=== PATIENT | male | born 1945 | race Caucasian/White ===

== ENCOUNTER → 2017-01-13 09:30 | Outpatient (CLI) | payer MEDICARE, OTHER ==
[2011-10-01 08:04] VITALS: BMI 32.6
== END | disposition home or self-care (01) ==
LOC: D.MRI 09:30
DX: M54.6 Pain in thoracic spine (principal)

== ENCOUNTER → 2017-02-17 12:31 | Outpatient (CLI) | payer MEDICARE, OTHER ==
[2011-10-01 08:04] VITALS: BMI 32.6
== END | disposition home or self-care (01) ==
LOC: D.MRI 12:31
DX: M48.06 Spinal stenosis, lumbar region (principal); M50.30 Other cervical disc degeneration, unspecified cervical region; M51.36 Other intervertebral disc degeneration, lumbar region

== ENCOUNTER 2017-07-19 10:12 | Outpatient (CLI) | payer MEDICARE, OTHER ==
[~2017-07-19] VITALS: Ht 182.9 cm; Wt 122.7 kg
--- NOTE | ~2017-07-19 | HEMODYNAMI ---
PATIENT:MONICA BREWER MEDICAL RECORD: [id number] : 41 LOCATION:[facility] D.2114 ADMISSION DATE: 07/19/17 Generatedon:07/20/20177:37 Patient name: MONICA BREWER Patient #: [id number] SSN: : 1945 Date of study: 07/19/2017 Page: Of Hemodynamic Procedure Report Patient Data Patient Demographics Procedure consent was obtained First Name: MONICA Gender: Male Last Name: OSMAN : 1945 Middle Initial: BREEZY Age: 72 year(s) Patient #: [id number] Race: Unknown Additional ID: [id number] Contact details [address]: [address] [place] [address] State: [place] City: [place] Zip code: [address] Past Medical History Allergies Allergen Reaction Date Comments Reported Other allergy 07/19/2017 morphine Admission Admission Data Admission Date: 07/19/2017 Admission Time: 13:21 Admit Source: Other Room #: D.2114 Lab Results Lab Result Date: 07/19/2017 Lab Result Time: 10:30 Biochemistry Name Units Result Min Max BUN mg/dl 20 --(----)*- 7 18 Creatinine mg/dl 1.2 --(---*)-- 0.6 1.3 CBC Name Units Result Min Max Hematocrit % 41.7 -*(----)-- 42 54 Hemoglobin g/dl 13.6 --(*---)-- 13.5 17.5 Procedure Procedure Types Cath Procedure Diagnostic Procedure C [facility] w/Coronaries PCI Procedure Coronary Stent Coronary Stent Initial Coronary Stent Additional Miscellaneous Procedures Moderate Sedation up to 30 minutes Procedure Description Procedure Date Procedure Date: 07/19/2017 Procedure Start Time: 15:53 Procedure End Time: 16:25 Procedure Staff Name Function Colby Weiss RT Monitor Rao Torres RN Nurse Jorge Alberto Kapadia MD Performing Physician Saul Dumont RT Scrub Procedure Data Cath Procedure Fluoroscopy Diagnostic fluoroscopy Total fluoroscopy Time: time: 10.1 min 10.1 min Diagnostic fluoroscopy Total fluoroscopy dose: dose: 2634 mGy 2634 mGy Contrast Material Contrast Material Type Amount (ml) Isovue 300 135 Entry Location Entry Primary Successful Side Size Upsize Upsize Entry Closure Succes sful Closure Location (Fr) 1 (Fr) 2 (Fr) Remarks Device Remarks Femoral Right 5 Fr 6 Fr Exoseal artery Short Estimated blood loss: 10 ml Diagnostic catheters Device Type Used For End Catheter Placement MULTIPACK Pigtail 5 Fr Procedure catheter MULTIPACK JL 4.0 5Fr Procedure catheter MULTIPACK 3DRC 5Fr Procedure catheter Procedure Complications No complications Procedure Medications Medication Administration Route Dosage Oxygen NC 3 l/min Lidocaine 2% added to field 20 Heparin Flush Bag added to field 2 bags (1000units/500ml NS) 0.9% NaCl I.V. 100 ml/hr Zofran I.V. 4 mg Versed I.V. 1 mg Fentanyl I.V. 50 mcg Versed I.V. 0.5 mg Fentanyl I.V. 25 mcg Heparin Bolus I.V. 5000 units Integrilin (Bolus I.V. 11.3 ml 2mg/ml) Integrilin (Bolus I.V. 11.3 ml 2mg/ml) Versed I.V. 0.5 mg Fentanyl I.V. 25 mcg Plavix P.O. 600 mg Hemodynamics Rest HGB: 13.6 (g/dl) Heart Rate: 95 (bpm) Pressure Samples Time Site Value (mmHg) Purpose Heart Use Rate(bpm) 16:12 AO 122/69(93) Snapshot 81 Snapshots Pre Cath Intra NCS Post Cath Vital Signs Time Heart Resp SPO2 etCO2 NIBP (mmHg) Rhythm Pain Sedation Rate (ipm) (%) (mmHg) Status Level (bpm) 15:40:20 79 16 96 36.6 144/81(124) NSR 0 (11) 10(A) , No pain 15:45:05 85 18 95 28.4 146/78(126) NSR 0 (11) 10(A) , No pain 15:49:47 86 22 92 25.4 137/66(104) NSR 0 (11) 10(A) , No pain 15:55:05 89 19 93 11.9 91/68(81) NSR 0 (11) 10(A) , No pain 16:00:12 88 17 93 14.2 125/71(105) NSR 0 (11) 10(A) , No pain 16:04:55 75 19 95 37.4 113/70(94) NSR 0 (11) 10(A) , No pain 16:10:12 81 16 93 21.6 108/63(81) NSR 0 (11) 10(A) , No pain 16:15:21 82 18 92 17.2 130/78(101) NSR 0 (11) 10(A) , No pain 16:20:04 77 18 94 18.7 134/69(111) NSR 0 (11) 10(A) , No pain 16:24:49 78 14 92 22.4 133/68(115) NSR 0 (11) 10(A) , No pain Medications Time Medication Route Dose Verified Delivered Reason Notes Effectiveness by by 15:41:52 Oxygen NC 3 Jorge Alberto Buffie used for l/min Steffi Torres RN procedure 15:42:00 Lidocaine 2% added 20ml Jorge Alberto Azul for local to vial Steffi Kapadia MD anesthetic field 15:42:07 Heparin Flush added 2 Jorge Alberto Jorge Alberto used for Bag to bags Steffi Kapadia MD procedure (1000units/500ml field NS) 15:42:17 0.9% NaCl I.V. 100 Jorge Alberto Jorge Alberto Per physician ml/hr Steffi Kapadia MD 15:42:36 Zofran I.V. 4 mg Jorge Alberto Yeh Per physician Steffi Torres RN 15:47:31 Versed I.V. 1 mg Jorge Alberto Yeh for sedation Steffi Torres RN 15:47:38 Fentanyl I.V. 50 Jorge Alberto Buffie for sedation mcg Steffi oTrres RN 15:53:36 Versed I.V. 0.5 Jorge Alberto Buffie for sedation mg Steffi Torres RN 15:53:40 Fentanyl I.V. 25 Jorge Alberto Buffie for sedation mcg Steffi Torres RN 15:58:03 Heparin Bolus I.V. 5000 Jorge Alberto Buffie for units Steffi Torres RN anticoagulation 16:00:56 Integrilin I.V. 11.3 Jorge Alberto Buffie for (Bolus 2mg/ml) ml Steffi Torres RN antiplatelet therapy 16:05:42 Integrilin I.V. 11.3 Jorge Alberto Buffie for Wasted (Bolus 2mg/ml) ml Steffi Torres RN antiplatelet 7.4 ml therapy of vial, used 3 vials 16:10:00 Fentanyl I.V. 25 Jorge Alberto Yeh for sedation mcg Steffi Torres RN 16:10:55 Versed I.V. 0.5 Jorge Alberto Yeh for sedation mg Steffi Torres RN 16:20:27 Plavix P.O. 600 Jorge Alberto Yeh for mg Steffi Torres RN antiplatelet therapy Procedure Log Time Note 15:00:20 Colby Weiss RT(R) sent for patient. Start room use. 15:02:14 Informed consent obtained and on chart 15:02:51 Admit Source: Other 15:03:18 Diagnostic Cath status Elective 15:03:21 Time tracking: Regular hours 15:03:56 Plan of Care:Hemodynamics will remain stable., Cardiac rhythm will remain stable., Comfort level will be maintained., Respiratory function will remain adequate., Patient/ family verbilizes understanding of procedure., Procedure tolerated without complication., Recovers from procedure without complications.. 15:04:03 H&P Date Dictated: 07/19/2017 New H&P dictated by physician.. 15:05:24 Lab Result : Hemoglobin 13.6 g/dl 15:05:24 Lab Result : Hematocrit 41.7 % 15:05:24 Lab Result : BUN 20 mg/dl 15:05:24 Lab Result : Creatinine 1.2 mg/dl 15:31:44 Patient received from Med II to CCL 1 Alert and oriented. Tansferred to table in Supine position. 15:31:45 Correct patient and procedure confirmed by team. 15:31:45 Warm blankets applied, and marco hugger turned on for patient comfort. 15:31:46 ECG and BP/O2 sat monitors applied to patient. 15:31:47 Pre-op teaching completed and patient verbalized understanding. 15:31:47 Pre-procedure instructions explained to patient. 15:31:49 Family in waiting room. 15:31:53 Patient NPO since Breakfast. 15:32:04 Patient allergic to Other allergymorphine 15:34:10 Is the patient allergic to Iodine/contrast media? No. 15:34:13 Is patient on blood thinner?No 15:34:31 Lab results completed and on chart. 15:35:34 Patient diabetic? Yes. 15:35:51 If diabetic: On Metformin? No 15:36:02 Previous problem with sedation/anesthesia? No ? 15:36:05 Snore? Yes 15:36:06 Sleep apnea? Yes 15:36:09 Opens mouth fully? Yes 15:36:09 Deviated septum? No 15:36:11 Sticks out tongue? Yes 15:36:19 Airway obstruction? No ? 15:36:24 Dentures? No ? 15:36:48 Patient pain scale 0/10 ?. 15:38:08 IV patent on arrival in right antecubital with 0.9% NaCl at [facility]. 15:39:12 Vital chart was started 15:39:13 Baseline sample Acquired. 15:39:20 Rhythm: sinus rhythm 15:39:40 Right groin area was prepped with chlora-prep and draped in sterile fashion 15:39:43 Alarms reviewed by R. N. 15:39:44 Sharps counted by scrub and verified by R.N. 15:39:56 Baseline sample Acquired. 15:40:04 Baseline sample Acquired. 15:40:23 Use device set Femoral Dx 15:40:24 ACIST Syringe (41346) opened to sterile field. 15:40:25 Bag Decanter (2002S) opened to sterile field. 15:40:26 Medline Cath Pack ([id number]) opened to sterile field. 15:40:32 ACIST Hand Control (24464) opened to sterile field. 15:40:33 ACIST Manifold (92574) opened to sterile field. 15:40:35 DIAGNOSTIC Multipack 5Fr catheter set ([id number]) opened to sterile field. 15:40:36 Tegaderm 4 x 4 (1626W) opened to sterile field. 15:41:52 Oxygen 3 l/min NC was administered by Rao Torres RN; used for procedure; 15:42:00 Lidocaine 2% 20ml vial added to field was administered by Jorge Alberto Kapadia MD; for local anesthetic; 15:42:07 Heparin Flush Bag (1000units/500ml NS) 2 bags added to field was administered by Jorge Alberto Kapadia MD; used for procedure; 15:42:17 0.9% NaCl 100 ml/hr I.V. was administered by Jorge Alberto Kapadia MD; Per physician; 15:42:36 Zofran 4 mg I.V. was administered by Rao Torres RN; Per physician; 15:46:49 DIAGNOSTIC WIRE .035 260cm J wire (404928) opened to sterile field. 15:46:49 SHEATH 5FR [place] (JAO712) opened to sterile field. 15:47:06 --------ALL STOP TIME OUT------ 15:47:07 Final Timeout: patient, procedure, and site verified with staff and physician. All members of the team are in agreement. 15:47:09 Right groin site verified by team. 15:47:12 Physical assessment completed. ASA score P 2 - A patient with mild systemic disease as per Jorge Alberto Kapadia MD. 15:47:14 Sedation plan: IV Moderate Sedation Medication:Versed, Fentanyl 15:47:31 Versed 1 mg I.V. was administered by Rao Torres RN; for sedation; 15:47:38 Fentanyl 50 mcg I.V. was administered by Rao Torres RN; for sedation; 15:48:56 PERCUTANEOUS ENTRY 19GA needle opened to sterile field. 15:53:33 Full Disclosure recording started 15:53:33 Procedure started. 15:53:36 Versed 0.5 mg I.V. was administered by Rao Torres RN; for sedation; 15:53:40 Fentanyl 25 mcg I.V. was administered by Rao Torres RN; for sedation; 15:53:53 Local anesthetic to right radial artery with Lidocaine 2% by Jorge Alberto Kapadia MD.INITIAL ACCESS ONLY 15:54:13 A 5 Fr sheath was inserted into the Right Femoral artery 15:54:27 A MULTIPACK Pigtail 5 Fr catheter was advanced over the wire and used for Procedure. 15:54:58 LV angiography performed. 15:54:59 LV gram done using HEALY 15:55:04 EF : 50 % 15:55:07 Injector settings: Ml/sec: 10, Volume: 20, 15:55:10 Catheter removed. 15:55:18 A MULTIPACK JL 4.0 5Fr catheter was advanced over the wire and used for Procedure. 15:56:21 LCA angiography performed. 15:56:39 Catheter removed. 15:58:03 Heparin Bolus 5000 units I.V. was administered by Rao Torres RN; for anticoagulation; 15:58:42 A MULTIPACK 3DRC 5Fr catheter was advanced over the wire and used for Procedure. 15:58:46 RCA angiography performed. 15:59:02 Use device set TAU PCI 15:59:09 INFLATOR Merit BasixCompak (SQ7764) opened to sterile field. 15:59:10 SHEATH 6FR [place] (QLU219) opened to sterile field. 15:59:19 CHOICE PT Extra Support J 300cm guide wire ([id number]) opened to sterile field. 15:59:30 Sheath upsized to a 6 Fr Short. 15:59:44 Study PCI Site: [place] OM1 has 100% stenosis. 15:59:47 ACC Pre-intervention LIZBETH Flow is 0. 15:59:53 6 Fr XBLAD 4 guide catheter was inserted over the wire 15:59:57 GUIDE 6FR XBLAD 4.0 catheter ([id number]) opened to sterile field. 16:00:56 Integrilin (Bolus 2mg/ml) 11.3 ml I.V. was administered by Rao Torres RN; for antiplatelet therapy; 16:01:00 Choice PT XS wire advanced. 16:02:58 GUIDE 6FR XBLAD 3.5 catheter ([id number]) opened to sterile field. 16:03:11 Wire advanced across lesion. 16:03:18 Inflation number: 1 A MAVERICK 3.0 X 20 balloon ([id number]) was prepped and advanced across the Prox CX, then inflated to 5 TIA for 0:10 (min:sec). 16:03:29 CHOICE PT Extra Support J 300cm guide wire ([id number]) opened to sterile field. 16:03:55 Wire damaged, exchanged for new choice pt xs. 16:04:11 Inflation number: 2 The MAVERICK 3.0 X 20 balloon ([id number]) was reinflated across the Prox CX, to 15 TIA for 0:10 (min:sec). 16:05:28 Balloon removed over the wire. 16:05:42 Integrilin (Bolus 2mg/ml) 11.3 ml I.V. was administered by Rao Torres RN; for antiplatelet therapy; Wasted 7.4 ml of vial, used 3 vials 16:06:57 Inflation Number: 3 A INTEGRITY OTW 3.5 X 22 stent ([id number]) was prepped and advanced across the Prox CX. The stent was deployed at 17 TIA for 0:10 (min:sec). 16:07:35 WHISPER 300cm guide wire ([id number]) opened to sterile field. 16:08:02 Wire removed. 16:08:07 Whisper wire advanced. 16:09:48 Wire advanced across lesion. 16:10:00 Fentanyl 25 mcg I.V. was administered by Rao Torres RN; for sedation; 16:10:09 Inflation number: 1 The stent balloon was then re-inflated across the 1st Ob Justa to 13 TIA for 0:10 (min:sec). 16:10:55 Versed 0.5 mg I.V. was administered by Rao Torres RN; for sedation; 16:11:03 Stent catheter was removed intact over wire. 16:12:06 Inflation Number: 2 A INTEGRITY OTW 3.5 X 15 stent ([id number]) was prepped and advanced across the 1st Ob Justa. The stent was deployed at 13 TIA for 0:10 (min:sec). 16:13:34 Wire redirected to CIRC. 16:14:13 Inflation number: 4 The stent balloon was then re-inflated across the Prox CX to 9 TIA for 0:10 (min:sec). 16:14:48 Multiple inflations made at 13 Atms. 16:14:52 Wire removed. 16:14:52 Stent catheter was removed intact over wire. 16:14:53 Guide catheter removed. 16:15:00 EXOSEAL 6Fr (EX600) opened to sterile field. 16:15:17 Sheath removed intact; hemostasis achieved with Exoseal to the Right Femoral artery. 16:15:19 Procedure ended.(Physican Out) 16:15:30 Fluoroscopy time 10.10 minutes. 16:15:34 Fluoroscopy dose: 2634 mGy 16:15:34 Flurop Dose total: 2634 16:15:39 Contrast amount:Isovue 300 135ml. 16:15:41 Sharps counted by scrub and verified by R.N. 16:16:07 Insertion/operative site no bleeding no hematoma. 16:16:09 Post-op/insertion site Right Femoral artery dressed using a 4 x 4 and Tegaderm. 16:16:11 Post Procedure Pulses reassessed and unchanged 16:16:13 Post-procedure physical assessment completed. ASA score P 2 - A patient with mild systemic disease as per Jorge Alberto Kapadia MD. 16:16:16 Post procedure rhythm: unchanged. 16:16:19 Estimated blood loss: 10 ml 16:16:21 Patient needs reinforcement of post procedure teaching. 16:16:21 Post procedure instruction explained to patient.Patient verbalizes understanding. 16:17:09 Procedure type changed to Cath procedure, Diagnostic procedure, LHC, LHC w/Coronaries, PCI procedure, Coronary Stent, Coronary Stent Initial, Coronary Stent Additional, Miscellaneous Procedures, Moderate Sedation up to 30 minutes 16:17:12 Procedure and supply charges have been captured, reviewed, submitted and are correct. 16:17:15 Procedure Complication : No complications 16:20:27 Plavix 600 mg P.O. was administered by Rao Torres RN; for antiplatelet therapy; 16:25:47 Vital chart was stopped 16:25:48 See physician's report for complete and final results. 16:25:50 Report given to PCU. 16:25:53 Patient transfered to PCU with Bed. 16:25:56 Full Disclosure recording stopped 16:25:56 Procedure ended. 16:26:00 End room use (Document Last) Intervention Summary Intervention Notes Time ActionType Lesion and Equipment Action# Pressure Duration Attributes Used 16:03:18 Inflate Prox CX MAVERICK 3.0 1 5 00:10 balloon X 20 balloon ([id number]) 16:04:11 Reinflate Prox CX MAVERICK 3.0 2 15 00:10 balloon X 20 balloon ([id number]) 16:06:57 Place stent Prox CX INTEGRITY 3 17 00:10 OTW 3.5 X 22 stent ([id number]) 16:10:09 Reinflate 1st Ob Justa INTEGRITY 1 13 00:10 stent OTW 3.5 X 22 balloon stent ([id number]) 16:12:06 Place stent 1st Ob Justa INTEGRITY 2 13 00:10 OTW 3.5 X 15 stent ([id number]) 16:14:13 Reinflate Prox CX INTEGRITY 4 9 00:10 stent OTW 3.5 X 15 balloon stent ([id number]) Device Usage Item Name Manufacture Quantity Catalog Number Hospital Part Current Min imal Lot# / Charge Number Stock Stock Serial# Code [facility] 1 24425 753425 742351 271604 20 Syringe Medical (53900) Systems Inc Bag Decanter Microtek 1 2001S 350988 39389 836256 5 (2001S) Medical Inc. Medline Cath Cardinal 1 [id number] 934903 50688 566801 5 Pack Health ([id number]) ACIST Hand Acist 1 85966 921954 820865 585198 5 Control Medical (54555) Systems Inc ACIST Acist 1 55282 544652 251306 292302 5 Manifold Medical (04345) Systems Inc DIAGNOSTIC Cardinal 1 DL1629 945723 25412 162202 30 Multipack [employer] 5Fr catheter set (YI5840) Tegaderm 4 x 3M 1 1626W 658419 069895 140470 5 4 (1626W) SHEATH 5FR Terumo 1 KOP527 890837 304086 479539 40 [place] (GXU107) DIAGNOSTIC [facility] 1 257860 955325 187638 643723 30 WIRE .035 260cm J wire (334807) PERCUTANEOUS [facility] 1 B96157 838448 168426 5 ENTRY 19GA needle MULTIPACK Cardinal 1 121909 5 Pigtail 5 Fr Health catheter MULTIPACK JL Cardinal 1 505672 5 4.0 5Fr Health catheter MULTIPACK Cardinal 1 298572 5 3DRC 5Fr Health catheter INFLATOR [facility] 1 ID0994 834186 990178 059999 15 [place] Medical BasixCompak (TY7223) SHEATH 6FR Terumo 1 TKD828 794751 499495 487310 40 [place] (RCI992) CHOICE PT Nettie 2 [id number] 482217 20190207 764624 5 Extra Scientific Support J 300cm guide wire ([id number]) GUIDE 6FR Cardinal 1 28424354 211337 194845 693203 3 XBLAD 4.0 Health catheter (21617733) GUIDE 6FR Cardinal 1 [id number] 413942 917951 875792 10 XBLAD 3.5 Health catheter (58602596) MAVERICK 3.0 Nettie 1 [id number] 346772 124444 018929 1 [id number] X 20 balloon Scientific ([id number]) INTEGRITY Medtronic 1 [id number] 233897 714473 9 [id number] OTW 3.5 X 22 stent ([id number]) WHISPER Ibarra 1 [id number] 336606 171428 165519 5 300cm guide Vascular wire (6811550DM) INTEGRITY Medtronic 1 [id number] 188362 338910 7 [id number] OTW 3.5 X 15 stent ([id number]) EXOSEAL 6Fr Cardinal 1 EX600 966611 091180 090109 10 (EX600) Health Signature Audit [place] Stage Time Signature Unsigned Intra-Procedure 07/19/2017 Colby Weiss RT(R) 4:29:09 PM RT(R) 07/20/2017 7:36:03 AM Intra-Procedure 07/20/2017 Colby Weiss 7:37:18 AM RT(R) Signatures Monitor : Colby Weiss RT Signature : Date : Time : [address] [address]
[2017-07-19 10:36] LABS: BASOPHILS 0.1 % (0-2); EOSINOPHILS 2.5 % (0-7); HEMATOCRIT 41.7 % (42.0-54.0); HEMOGLOBIN 13.6 g/dL (13.5-17.5); IMMATURE GRANULOCYTES 0.3 % (0-5); LYMPHOCYTES 38.4 % (15-50); MCH 29.5 pg (26.0-34.0); MCHC 32.6 g/dL (31.0-37.0); MCV 90.5 fL (80.0-100.0); MEAN PLATELET VOLUME 10.2 fL (7.4-10.4); MONOCYTES 6.5 % (2-11); NEUTROPHILS 52.2 % (40-80); PLATELET COUNT 214 10x3/uL (130-400); RBC 4.61 10x6/uL (4.20-6.10); RDW 14.6 % (11.5-14.5); WBC 9.3 10x3/uL (4.8-10.8)
[2017-07-19 10:51] LABS: ALBUMIN 3.6 g/dL (3.4-5.0); ALKALINE PHOSPHATASE 87 U/L (46-116); ALT (SGPT) 19 U/L (10-68); CALC OSMOLALITY 287 mosm/kg (275-300); CALCIUM 9.2 mg/dL (8.5-10.1); CARBON DIOXIDE 25.6 mmol/L (21.0-32.0); CHLORIDE - SERUM 103 mmol/L (98-107); CREATININE - SERUM 1.2 mg/dL (0.6-1.3); GLUCOSE 206 mg/dL (74-106); POTASSIUM - SERUM 4.4 mmol/L (3.5-5.1); PROTEIN - SERUM 7.8 g/dL (6.4-8.2); SODIUM 140 mmol/L (136-145); UREA NITROGEN 20 mg/dL (7-18); eGFR NON AFRICAN AMERICAN 63 mL/min (90-120)
[2017-07-19 11:01] LABS: CHOL - HDL RATIO 3.6 ratio (2.3-4.9); CHOLESTEROL, TOTAL 132 mg/dL (0-200); CREATINE KINASE 118 UL (21-232); HDL CHOLESTEROL 37 mg/dL (32-96); LDL CHOLESTEROL 69 mg/dL (0-100); LDL-HDL RATIO 1.9 ratio (1.5-3.5); TRIGLYCERIDE 131 mg/dL (30-200)
[2017-07-19 11:08] LABS: TROPONIN-I < 0.017 ng/mL (0.000-0.060)
--- NOTE | 2017-07-19 15:12 | NUR ---
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
--- NOTE | 2017-07-19 15:30 | NUR ---
PT TO TERRITORY ACCOUNT REPRESENTATIVE VIA BED PER CATH STAFF
[2017-07-19 15:39] VITALS: BP 125/66
[2017-07-19 15:47] VITALS: BP 135/66; Ht 182.9 cm; Wt 122.7 kg
--- NOTE | 2017-07-19 16:45 | NUR ---
RECEIVED PT BACK FROM NEEDLE GRADER VIA BED RT GROIN LUBNA C/D/I NO SIGNS OF BLEEDING VSS WILL CONTINUE TO MONITOR
[2017-07-19] MEDS ORDERED: ZESTRIL40 MG PO (18:53)
[2017-07-19] MEDS ORDERED: LANTUS SOL100 UNIT/1 SC (18:53)
[2017-07-19] MEDS ORDERED: BAYER CHEWABLE81 MG PO (18:54)
[2017-07-19] MEDS ORDERED: NORVASC10 MG PO (18:54)
[2017-07-19] MEDS ORDERED: OMEPRAZOLE20 M1 PO (18:55)
[2017-07-19] MEDS ORDERED: CARDURA4 MG PO (18:55)
[2017-07-19] MEDS ORDERED: FLOMAX0.4 MG PO (18:56)
[2017-07-19] MEDS ORDERED: GLIPIZIDE10 MG PO (18:56)
[2017-07-19] MEDS ORDERED: PLAVIX75 MG PO (18:56)
[2017-07-19] MEDS ORDERED: LIPITOR40 MG PO (18:57)
[2017-07-19] MEDS ORDERED: GLUCOTROL XL 1010 MG PO (18:58)
[2017-07-19 19:00] VITALS: BP 123/72
--- NOTE | 2017-07-19 19:00 | NUR ---
RECEIVED REPORT AND ASSUMED PT CARE FROM DAY SHIFT NURSE @ THIS TIME.
[2017-07-20] VITALS: BP 147/69
[2017-07-20 04:00] VITALS: BP 123/51
--- NOTE | 2017-07-20 07:30 | NUR ---
RECEIVED PT IN BED AAOX4 RESP UNLABORED DENIES ANY NEEDS OR DISCOMFORT NAD NOTED
[2017-07-20 07:47] VITALS: BP 130/77
[2017-07-20 11:31] VITALS: BP 108/72
--- NOTE | 2017-07-20 11:34 | HP ---
PATIENT: MONICA BREWER MEDICAL RECORD: [id number] ACCOUNT: [id number] LOCATION:[facility].2114 : 41 ADMISSION DATE: 07/19/17 HISTORY AND PHYSICAL EXAMINATION DIAGNOSES: 1. Unstable angina. 2. Coronary artery disease. 3. Previous PTCA and stent. 4. Abnormal ECG. 5. Hypertension. 6. Hyperlipidemia. HISTORY: This is a gentleman who presents with anginal symptomatology. He has ST-T changes on his EKG, but no acute myocardial infarction. His chest pain was new onset of today. The last stents were in September of 2014. REVIEW OF SYSTEMS: The patient reports easy bruising but reports no swollen glands. The patient reports no fever, no night sweats, no significant weight gain, no significant weight loss. No significant exercise tolerance. The patient reports no dry eyes, no irritation, no vision change. Patient reports no difficulty hearing and no ear pain. Patient reports no frequent nose bleeds or nose and sinus problems. Patient reports on arm pain on exertion. No shortness of breath while lying down. No history of heart murmur. Patient reports no cough, no wheezing or coughing up blood. Patient reports no abdominal pain, no vomiting. Normal appetite. No diarrhea and not vomiting blood. No nausea and no constipation. Patient reports no incontinence. No difficulty urinating. No hematuria. No increased frequency. Patient reports no muscle aches. No weakness, no arthralgias, no back pain. No swelling of the extremities. Patient reports no abnormal mole, no jaundice, no rashes. Reports no loss of consciousness. No weakness and no numbness. No seizures, dizziness, or headaches. The patient reports no depression, no sleep disturbance, feeling safe in a relationship and no alcohol abuse. Patient reports on fatigue. Reports no runny nose or sinus pressure. No itching, no hives, and no frequent sneezing. PHYSICAL EXAMINATION: GENERAL APPEARANCE: Well-nourished, well-developed, appears stated age. Level of distress, comfortable. PSYCHIATRIC: Mental status, alert, normal affect. Orientation, oriented to time, place and person. EYES: Lids and conjunctiva, noninjected. No discharge, no pallor. ENT: Lips, teeth, gums, normal dentition. Oropharynx, no cyanosis, no pallor. NECK: Carotid arteries, bilateral normal upstroke, no bruits, no thrills. JUGULAR VEINS: No jugular venous pressure or distention. CERVICAL LYMPH NODES: Nontender, nonenlarged. THYROID: Not enlarged. Nontender. No nodules. LUNGS: Respiratory effort, unlabored. CHEST: Normal curvature. No thoracic deformity. No chest wall tenderness. Percussion, resonant. Auscultation, clear. No wheezes, no rales, no rhonchi. CARDIOVASCULAR: Precordial exam, nondisplaced. No heaves or pericardial thrills. Rate and rhythm, regular. Heart sounds, normal S1, normal S2. No S3, no gallop, no rub. Systolic murmur, not heard. Diastolic murmur, not heard. EXTREMITIES: No cyanosis, no edema. Peripheral pulses, full and equal in all extremities, except as noted. No bruits appreciated. HISTORY AND PHYSICAL [id number] MONICA BREWER ABDOMEN: Soft, nondistended. Normal aorta. No bruit. Nontender. No masses. Liver, nontender, no hepatomegaly. Spleen, nontender, no splenomegaly. MUSCULOSKELETAL: No joint tenderness. No joint swelling. No erythema. NEUROLOGICAL: Normal gait, normal strength, normal tone. SKIN: Warm and dry. OVERALL IMPRESSION: Chest pain compatible with angina with abnormal ECG. Most likely, he has recurrent hemodynamically significant coronary artery disease. We will proceed with coronary angiography. Further care depends upon findings of the angiography. TRANSINT:[id number] Voice Confirmation ID: [id number] DOCUMENT ID: [id number] JENISE BARROS MD at 1134 CC: [id number] DICTATION DATE: 07/19/17 1251 CONTRACT OFFICER: 07/19/17 1415 ADM IN [facility] [address] [place] [address]
[2017-07-20] MEDS ORDERED: COREG6.25 MG PO (11:40)
--- NOTE | 2017-07-20 12:17 | OP ---
PATIENT NAME: MONICA BREWER MEDICAL RECORD: [id number] :41 LOCATION:D.M2 D.2114 ADMISSION DATE:07/19/17 SURGEON: JENISE BARROS MD DATE OF OPERATION: 07/19/2017 DATE OF SERVICE: 07/19/2017 PROCEDURES: 1. PTCA stent of left circumflex. 2. PTCA stent of obtuse marginal. 3. Left heart catheterization. 4. Selective coronary angiography. 5. Left ventriculogram. INDICATION: Non-Q-wave myocardial infarction. DESCRIPTION OF PROCEDURE: After informed consent was obtained and after a detailed explanation of the risks, benefits as well as alternative therapies, the patient elected to proceed with angiogram and angioplasty. The right femoral area was prepped and draped in normal sterile fashion. The right femoral artery was cannulated via modified Seldinger technique with placement of 6-Japanese sheath. All catheters exchanged through this sheath. FINDINGS: Left ventriculogram was performed in standard 30-degree HEALY view, reveals preserved cardiac wall motion, ejection fraction 50%. SELECTIVE CORONARY ANGIOGRAPHY: 1. Left main is with no significant angiographic disease. 2. Left anterior descending has no significant stenosis, only mild irregularities. 3. Left circumflex has 100% occlusion proximally. 4. Right coronary has mild irregularities, but no flow-limiting stenosis. PTCA STENT OF THE LEFT CIRCUMFLEX: The circumflex was addressed with a 3.5 x 22 mm Integrity, the first obtuse marginal was addressed with a 3.5 x 15 mm Integrity. Result was 0% residual stenosis. OVERALL IMPRESSION: Successful percutaneous transluminal coronary angioplasty stent of the circumflex stent and first obtuse marginal going from 100% initial stenosis to 0% residual stenosis. TRANSINT:[id number] Voice Confirmation ID: [id number] DOCUMENT ID: [id number] JENISE BARROS MD at 1217 CC: [id number] DICTATION DATE: 07/19/17 161 MAIL HANDLER EQUIPMENT OPERATOR: 07/19/171915 ADM IN [id number] [place] [address]
--- NOTE | 2017-07-20 12:25 | NUR ---
REVIEWED DISCHARGE INSTRUCTIONS WITH PT STATES UNDERSTANDING COPY GIVEN DCD SALINE LOCK TO RAC WITH IV CATHETER INTACT SITE FREE OF REDNESS OR EDEMA PT DISCHARGED HOME LFET UNIT VIA W/C IN STABLE CONDTION WITH ALL PERSONAL BELONGINGS
--- NOTE | 2017-08-04 15:46 | DS ---
PATIENT:MONICA VINCENT :41 MEDICAL RECORD: [id number] DISCHARGE SUMMARY ADMISSION DATE: 07/19/17 DISCHARGE DATE: 07/20/17 DATE OF SERVICE: 07/20/2017. DIAGNOSES: 1. Unstable angina. 2. Percutaneous transluminal coronary angioplasty stent of the left circumflex this admission. 3. Hypertension. 4. Hyperlipidemia. 5. Coronary artery disease. HOSPITAL COURSE: Mr. Vincent presents with unstable anginal symptomatology, found to have significant disease of the circumflex, underwent successful PTCA stent of the circumflex. Discharged home with the addition of Coreg and Plavix to his medical regimen. Will follow up with [facility] in 1 month. TRANSINT:[id number] Voice Confirmation ID: [id number] DOCUMENT ID: [id number] JENISE BARROS MD at 1546 CC: [id number] DICTATION DATE: 07/20/17 1136 CHAIN MACHINE OPERATOR: 07/20/17 1312 DEP CLI 07/20/17 [id number] [place] [address]
== END 2017-07-20 12:25 | disposition home or self-care (01) ==
LOC: OBSVTIME → D.CATH 10:12 → D.ER 10:12 → D.M2 12:52 → D.ER 13:21 → D.M2 13:21 → OBSVTIME 13:21 → EDSTATUS 14:45 → D.M2 07-20 12:25 → D.CATH 07-20 12:25
PROVIDERS: Family Medicine
DX: I25.110 Atherosclerotic heart disease of native coronary artery with unstable angina pectoris (principal); Z95.5 Presence of coronary angioplasty implant and graft; R94.31 Abnormal electrocardiogram [ECG] [EKG]; I10 Essential (primary) hypertension; E78.5 Hyperlipidemia, unspecified

== ENCOUNTER → 2018-10-27 08:55 | Outpatient (CLI) | payer MEDICARE, OTHER ==
[2017-07-19 15:47] VITALS: BMI 40.8
[~2018-10-27 08:55] MED LIST: BAYER CHEWABLE81 MG PO; CARDURA4 MG PO; COREG6.25 MG PO; FLOMAX0.4 MG PO; GLIPIZIDE10 MG PO; GLUCOTROL XL 1010 MG PO; LANTUS SOL100 UNIT/1 SC; LIPITOR40 MG PO; NORVASC10 MG PO; OMEPRAZOLE20 M1 PO; PLAVIX75 MG PO; ZESTRIL40 MG PO
--- NOTE | 2018-10-30 10:39 | EC ---
PATIENT:MONICA BREWER DATE OF SERVICE: 10/27/18 SEX: M MEDICAL RECORD: [id number] DATE OF : 41 LOCATION:[facility] AGE OF PATIENT: 73 ADMISSION DATE: 10/27/18 REFERRING PHYSICIAN: INTERPRETING PHYSICIAN: RAFAELA ESQUIVEL MD ECHOCARDIOGRAM REPORT ECHO CHARGES 4 ECHO COMPLETE Date: 10/27/18 CLINICAL DIAGNOSIS: CAD HX HTN/DM II ECHOCARDIOGRAPHIC MEASUREMENTS (adult normal given) AC root (d.<3.7cm) 3.2 cm LV Septum d (<1.2 cm> 1.7 cm Valve Excursion 1.8 cm LV Septum (systole) 1.9 cm Left Atria (s.<4.0cm> 4.9 cm LVPW d(<1.2cm) 1.6 cm RV (d.<2.3cm) 4.7 cm LVPW (sytole) 2.0 cm LV diastole(<5.6CM) 6.3 cm MV E-F(>70mm/sec) cm LV systole 4.6 cm LVOT Diameter 2.1 cm MV exc.(>10mm) 1.5 cm Est.ejection fraction (50-75%) % DOPPLER: LVIT cm/sec A 126 cm/sec E 100 cm/sec LA cm/sec RVSP 16 mmHg LVOT 104 cm/sec AOP1/2T m/s Asc. Ao 207 cm/sec RVOT 91 cm/sec RA cm/sec PA 113 cm/sec AV Gradient Peak 17.14mmHg AV Mean 9.34 mmHg AV Area 1.6 cm MV Gradient Peak 9.11 mmHg MV Mean 3.32 mmHg MV Area cm COMMENTS: Drying Can Worker: 2 RICARDO QUEVEDO Safety And Health Consultant: 3 Dr. Billy TAPE# PACS Pericardial Effusion N DATE OF SERVICE: Adequate 2D, color flow, spectral Doppler, and M-Mode LVH is present. LV internal dimension is normal. Wall motion is normal. EF is greater than or equal to 55%. Aortic valve is sclerosed without stenosis by Doppler interrogation. The left atrium is normal at 3.9 cm. Mitral valve shows no prolapse. Trace MR. Right-sided chambers are grossly normal. Trace TR. TRANSINT:[id number] Voice Confirmation ID: [id number] DOCUMENT ID: [id number] ECHOCARDIOGRAM REPORT [id number] MONICA BREWER GREGORY A MD at 1039 CC: [id number] DICTATION DATE: 10/28/18 1203 CHIEF NUCLEAR MEDICINE TECHNOLOGIST: 10/28/18 1239 DEP CLI 10/27/18 [id number] [place] [address]
== END | disposition home or self-care (01) ==
LOC: D.HCCARDIO 08:55
PROVIDERS: ATTEND Internal Medicine Interventional Cardiology
DX: I25.10 Atherosclerotic heart disease of native coronary artery without angina pectoris (principal)

== ENCOUNTER → 2019-12-11 08:54 | Outpatient (CLI) | payer MEDICARE, OTHER ==
[2017-07-19 15:47] VITALS: BMI 40.8
== END | disposition home or self-care (01) ==
LOC: D.MRI 08:54
PROVIDERS: ATTEND Family Medicine
DX: M54.2 Cervicalgia (principal)

== ENCOUNTER → 2020-01-24 10:02 | Outpatient (CLI) | payer MEDICARE, OTHER ==
[2017-07-19 15:47] VITALS: BMI 40.8
--- NOTE | ~2020-01-24 | EC ---
PATIENT:MONICA BREWER DATE OF SERVICE: 01/24/20 SEX: M MEDICAL RECORD: [id number] DATE OF : 41 LOCATION:[facility] AGE OF PATIENT: 74 ADMISSION DATE: 01/24/20 REFERRING PHYSICIAN: INTERPRETING PHYSICIAN: RAFAELA ESQUIVEL MD ECHOCARDIOGRAM REPORT ECHO CHARGES 4 ECHO COMPLETE Date: 01/24/20 CLINICAL DIAGNOSIS: CAD/AORITC SCLEROSIS ECHOCARDIOGRAPHIC MEASUREMENTS (adult normal given) AC root (d.<3.7cm) 3.4 cm LV Septum d (<1.2 cm> 1.6 cm Valve Excursion 1.7 cm LV Septum (systole) 2.1 cm Left Atria (s.<4.0cm> 4.9 cm LVPW d(<1.2cm) 1.8 cm RV (d.<2.3cm) 4.0 cm LVPW (sytole) 2.2 cm LV diastole(<5.6CM) 5.8 cm MV E-F(>70mm/sec) cm LV systole 3.5 cm LVOT Diameter 2.0 cm MV exc.(>10mm) 1.5 cm Est.ejection fraction (50-75%) % DOPPLER: LVIT cm/sec A 24.0 cm/sec E 112.0 cm/sec LA cm/sec RVSP 19 mmHg LVOT 106 cm/sec AOP1/2T m/s Asc. Ao 241 cm/sec RVOT 89 cm/sec RA cm/sec PA 98 cm/sec AV Gradient Peak 23.31mmHg AV Mean 12.92mmHg AV Area 1.4 cm MV Gradient Peak 4.52 mmHg MV Mean 2.46 mmHg MV Area cm COMMENTS: Director Of Casework Department: 2 RICARDO QUEVEDO Newsperson: 3 Dr. Billy TAPE# PACS Pericardial Effusion N DATE OF SERVICE: Adequate 2D, color flow imaging, spectral Doppler, and M-Mode. LVH is present. LV internal dimensions are normal. Wall motion is normal. EF is greater than or equal to 55%. Aortic valve is sclerotic with mild restriction of leaflet motion. Peak gradient 23 mmHg putting this in mild range. Left atrium dilated at 4.9 cm. Mitral valve is thickened. Mild MR. Right-sided chambers are grossly normal. Trace TR. ECHOCARDIOGRAM REPORT [id number] MONICA BREWER TRANSINT:[id number] Voice Confirmation ID: [id number] DOCUMENT ID: [id number] RAFAELA ESQUIVEL MD CC: [id number] DICTATION DATE: 01/25/20 1524 MONUMENT STONECUTTER: 01/25/20 1843 DEP CLI 01/24/20 [facility] [address] [id number]
== END | disposition home or self-care (01) ==
LOC: D.HCCECHO 10:02
PROVIDERS: ATTEND Internal Medicine Interventional Cardiology
DX: I25.10 Atherosclerotic heart disease of native coronary artery without angina pectoris (principal)